=== PATIENT | male | born 1950 | race Caucasian/White ===

== ENCOUNTER 2018-10-30 07:38 | Inpatient (IN) ==
[2018-10-30] MEDS ORDERED: Iohexol 350 MG/ML 50 ML Vial (for Rad Diag) IVCONTRAST ONE (07:39)
[2018-10-30 08:41] LABS: Baso % (Auto) 0.5 % (0.0-2.0); Eos # (Auto) 0.1 th/mm3 (0.0-0.4); Eos % (Auto) 0.8 % (0.0-4.0); Hematocrit 53.7 % (39.0-51.0); Hemoglobin 18.7 gm/dL (13.0-17.0); Lymph # (Auto) 1.2 th/mm3 (1.0-4.8); Lymph % (Auto) 15.7 % (9.0-44.0); Mean Corpuscular HGB Conc 34.9 % (32.0-36.0); Mean Corpuscular Hemoglobin 36.3 pg (27.0-34.0); Mean Corpuscular Volume 104.3 fL (80.0-100.0); Mean Platelet Volume 9.3 fL (7.0-11.0); Mono # (Auto) 0.9 th/mm3 (0.0-0.9); Mono % (Auto) 11.7 % (0.0-8.0); Neut # (Auto) 5.4 th/mm3 (1.8-7.7); Neut % (Auto) 71.3 % (16.0-70.0); Platelet Count 163 th/mm3 (150-450); Red Blood Count 5.15 mil/mm3 (4.50-5.90); Red Cell Distribution Width 13.5 % (11.6-17.2); White Blood Count 7.6 th/mm3 (4.0-11.0)
--- NOTE | 2018-10-30 08:55 | ED ---
HPI General Chief complaint: Shortness of Breath/Dyspnea Stated complaint: CHF/Heart Complaint Time Seen by Provider: 10/30/18 08:10 Source: patient Mode of arrival: ambulatory Limitations: no limitations History of Present Illness HPI narrative: Patient is a 68 year old male who comes in complaining of shortness of breath. He says he went to the [place] yesterday and was told to come to the ED due to concerns for CHF and afib. He says for the past week he has been feeling short of breath, worse with exertion. He says it started suddenly while he was at the gym. He denies any chest pain. He has been coughing. He denies fever or chills. He feels short of breath with laying flat as well. He reports swelling of both legs. Severity is moderate. Related Data Home Medications Medication Instructions Recorded Confirmed alprazolam 1.5 mg PO HS 10/30/18 10/30/18 amlodipine 5 mg PO DAILY 10/30/18 10/30/18 buspirone 20 mg PO BID 10/30/18 10/30/18 lisinopril-hydrochlorothiazide 2 tab PO DAILY 10/30/18 10/30/18 mirtazapine 45 mg PO HS 10/30/18 10/30/18 morphine 15 mg PO BID PRN 10/30/18 10/30/18 oxycodone 5 mg PO DAILY 10/30/18 10/30/18 trazodone 1 - 2 tab PO HS PRN 10/30/18 10/30/18 Allergies Allergy/AdvReac Type Severity Reaction Status Date / Time atenolol Allergy Anxiety Verified 10/30/18 08:00 lithium AdvReac Anxiety Verified 10/30/18 08:00 Review of Systems ROS: all other systems reviewed are negative Constitutional Denies chills and Denies fever(s) ENT Denies dizziness Cardiovascular Denies chest pain, Reports edema and Reports dyspnea Respiratory Reports cough and Reports dyspnea Gastrointestinal Denies nausea and Denies vomiting Musculoskeletal Denies myalgias and Denies arthralgias Integumentary/Breasts Denies sores and Denies wounds Neurologic Denies focal weakness and Denies numbness PMFSH Medical History Medical History A-fib (Acute) BPH without urinary obstruction (Acute) CHF (congestive heart failure) (Acute) Cocaine dependence in remission (Acute) Edema (Acute) Elevated PSA (Acute) Generalized anxiety disorder (Acute) Hypogonadism male (Acute) Major depression in partial remission (Acute) Nondependent alcohol abuse, in remission (Acute) Obesity (Acute) Obstructive sleep apnea (Acute) Osteoarthritis (Acute) Panic attacks (Acute) Polysubstance dependence (Acute) Sensorineural hearing loss (SNHL) of both ears (Acute) Tinnitus (Acute) Surgical History Surgical History History of hernia repair (Acute) History of hip replacement (Acute) History of knee replacement (Acute) Social History Social History Substance History: No History of Abuse Second Hand Smoke Exposure: Yes Smoking Status: Current every day smoker Tobacco Type: Cigars How Often Do You Have a Drink Containing Alcohol: 4 or more times a week Recent Travel in [facility] within the Last 8 Weeks: No Recent Out of Country Travel within the Last 8 Weeks: No Immunization History Tetanus Immunization: <5 Years Tetanus Immunization Year if Known: 2017 Exam Narrative Exam Narrative: GENERAL: Awake and alert, in no acute distress. SKIN: Focused skin assessment warm/dry. No wounds or signs of infection. HEAD: Atraumatic. Normocephalic. EYES: Pupils equal and round. No scleral icterus. No injection or drainage. ENT: Mucous membranes pink and moist. NECK: Trachea midline. No JVD. CARDIOVASCULAR: Regular rate and rhythm. No murmur appreciated. RESPIRATORY: No accessory muscle use. Decreased breath sounds on the left. Breath sounds equal bilaterally. GASTROINTESTINAL: Abdomen soft, non-tender, nondistended. MUSCULOSKELETAL: No obvious deformities. No clubbing. No cyanosis. Bilateral lower extremity edema. NEUROLOGICAL: Awake and alert. No obvious cranial nerve deficits. Motor grossly within normal limits. Normal speech. PSYCHIATRIC: Appropriate mood and affect; insight and judgment normal. Course Initial Documented Vital Signs Temperature 97.9 F 10/30/18 07:42 Pulse Rate 120 H 10/30/18 07:42 Respiratory Rate 20 10/30/18 07:42 Blood Pressure 151/104 H 10/30/18 07:42 Pulse Oximetry 95 10/30/18 07:42 Last Documented Vital Signs Temperature 97.7 F 10/30/18 12:57 Pulse Rate 93 H 10/30/18 12:57 Respiratory Rate 17 10/30/18 12:57 Blood Pressure 113/82 10/30/18 12:57 Pulse Oximetry 96 10/30/18 12:57 Medical Decision Making MDM Narrative Medical decision making narrative: Patient is a 68 year old male who comes in complaining of shortness of breath, edema and rapid heart rate. Exam shows bilateral lower extremity edema and decreased breath sounds on the left. IV established, labs sent. Labs show a Hgb of 18.7, Cr 1.45, BNP slightly elevated. CXR concerning for left sided pleural effusion. CTA chest performed shows pleural effusions, no PE. Given Lasix. Given one dose of cardizem for heart rate in the 110-120 range. Patient to be admitted for further management. Medical Screen Exam Complete: Yes Emergency Medical Condition: Yes Differential Diagnosis Differential Diagnosis: CHF vs COPD vs ACS vs Afib Medical Records Medical records reviewed: Yes I reviewed the patient's medical records. Lab Data Lab results reviewed: Yes I reviewed the patient's lab results. Result diagrams: 10/30/18 08:30 10/30/18 08:30 Lab Results 10/30/18 10/30/18 10/30/18 Range/Units 08:30 08:30 08:30 WBC 7.6 (4.0-11.0) th/mm3 RBC 5.15 (4.50-5.90) mil/mm3 Hgb 18.7 H (13.0-17.0) gm/dL Hct 53.7 H (39.0-51.0) % MCV 104.3 H (80.0-100.0) fL MCH 36.3 H (27.0-34.0) pg MCHC 34.9 (32.0-36.0) % RDW 13.5 (11.6-17.2) % Plt Count 163 (150-450) th/mm3 MPV 9.3 (7.0-11.0) fL Neut % (Auto) 71.3 H (16.0-70.0) % Lymph % (Auto) 15.7 (9.0-44.0) % Davidson % (Auto) 11.7 H (0.0-8.0) % Eos % (Auto) 0.8 (0.0-4.0) % Baso % (Auto) 0.5 (0.0-2.0) % Neut # (Auto) 5.4 (1.8-7.7) th/mm3 Lymph # (Auto) 1.2 (1.0-4.8) th/mm3 Davidson # (Auto) 0.9 (0.0-0.9) th/mm3 Eos # (Auto) 0.1 (0.0-0.4) th/mm3 Baso # (Auto) 0.0 (0.0-0.2) th/mm3 WBC Differential . Differential Comment Auto diff final PT (9.8-11.6) sec INR Ratio APTT (23.4-31.7) sec Sodium 139 (136-145) meq/L Potassium 4.4 (3.5-5.1) meq/L Chloride 103 (98-107) meq/L Carbon Dioxide 29.8 (21.0-32.0) meq/L Anion Gap 6 (5-15) meq/L BUN 25 H (7-18) mg/dL Creatinine 1.45 H (0.60-1.30) mg/dL Estimated GFR 48 L (>89) mL/min Random Glucose 127 H (74-106) mg/dL Calcium 9.1 (8.5-10.1) mg/dL Total Bilirubin 1.4 H (0.2-1.0) mg/dL AST 48 H (15-37) U/L ALT 67 (12-78) U/L Alkaline Phosphatase 67 (45-117) U/L Total Creatine Kinase 133 (39-308) U/L CK-MB (CK-2) 3.3 (0.5-3.6) ng/mL Troponin I 0.03 (0.02-0.05) ng/mL B-Natriuretic Peptide 222 H (0-100) pg/mL Total Protein 7.8 (6.4-8.2) g/dL Albumin 3.8 (3.4-5.0) g/dL 10/30/18 Range/Units 08:30 WBC (4.0-11.0) th/mm3 RBC (4.50-5.90) mil/mm3 Hgb (13.0-17.0) gm/dL Hct (39.0-51.0) % MCV (80.0-100.0) fL MCH (27.0-34.0) pg MCHC (32.0-36.0) % RDW (11.6-17.2) % Plt Count (150-450) th/mm3 MPV (7.0-11.0) fL Neut % (Auto) (16.0-70.0) % Lymph % (Auto) (9.0-44.0) % Davidson % (Auto) (0.0-8.0) % Eos % (Auto) (0.0-4.0) % Baso % (Auto) (0.0-2.0) % Neut # (Auto) (1.8-7.7) th/mm3 Lymph # (Auto) (1.0-4.8) th/mm3 Davidson # (Auto) (0.0-0.9) th/mm3 Eos # (Auto) (0.0-0.4) th/mm3 Baso # (Auto) (0.0-0.2) th/mm3 WBC Differential Differential Comment PT 12.3 H (9.8-11.6) sec INR 1.2 Ratio APTT 30.4 (23.4-31.7) sec Sodium (136-145) meq/L Potassium (3.5-5.1) meq/L Chloride (98-107) meq/L Carbon Dioxide (21.0-32.0) meq/L Anion Gap (5-15) meq/L BUN (7-18) mg/dL Creatinine (0.60-1.30) mg/dL Estimated GFR (>89) mL/min Random Glucose (74-106) mg/dL Calcium (8.5-10.1) mg/dL Total Bilirubin (0.2-1.0) mg/dL AST (15-37) U/L ALT (12-78) U/L Alkaline Phosphatase (45-117) U/L Total Creatine Kinase (39-308) U/L CK-MB (CK-2) (0.5-3.6) ng/mL Troponin I (0.02-0.05) ng/mL B-Natriuretic Peptide (0-100) pg/mL Total Protein (6.4-8.2) g/dL Albumin (3.4-5.0) g/dL Imaging Data Radiologist's impression: Chest X-Ray 10/30/18 08:19 CONCLUSION: Mild congestive failure with minimal consolidation and pleural effusion left base. Chest CTA 10/30/18 08:55 CONCLUSION: 1. No evidence of pulmonary embolism. 2. Moderate cardiomegaly and bilateral pleural effusions left greater than right. 3. Mild consolidation in the posterior left lung base. 4. Mildly prominent azygos lymph node. ECG Data EKG Prior to Arrival: No Attestation: I personally reviewed and interpreted this ECG as follows: Interpretation: ECG shows afib with RVR Discharge Plan Discharge Disposition Patient Disposition: ED Admit(ED Internal Use Only) Discharge Condition Condition: Stable Discharge Order Discharge Orders: ED Use Only Admit Order (Routine); Ordered 10/30/18 Ordered By: Julianne Garcia Discharge Details Diagnosis: CHF (congestive heart failure), New onset a-fib, Pleural effusion Physicians Team ED Provider: Julianne Garcia Primary Care Provider: [facility] Attending Provider: Eleanor Patel Other Providers: Anabela Harris Status ED Status: Admitted Patient
[2018-10-30 08:57] LABS: Activated Partial Thrombo Time 30.4 sec (23.4-31.7); INR 1.2 Ratio; Prothrombin Time 12.3 sec (9.8-11.6)
[2018-10-30 09:05] LABS: Alanine Aminotransferase 67 U/L (12-78); Albumin 3.8 g/dL (3.4-5.0); Alkaline Phosphatase 67 U/L (45-117); Anion Gap 6 meq/L (5-15); Aspartate Aminotransferase 48 U/L (15-37); Blood Urea Nitrogen 25 mg/dL (7-18); Calcium 9.1 mg/dL (8.5-10.1); Carbon Dioxide 29.8 meq/L (21.0-32.0); Chloride 103 meq/L (98-107); Creatine Kinase 133 U/L (39-308); Glomerular Filtration Rate 48 mL/min (>89); Glucose,Random 127 mg/dL (74-106); Sodium 139 meq/L (136-145); Total Protein 7.8 g/dL (6.4-8.2); Troponin I 0.03 ng/mL (0.02-0.05)
[2018-10-30 09:12] LABS: Potassium 4.4 meq/L (3.5-5.1)
[2018-10-30 09:24] LABS: Creatine Kinase MB 3.3 ng/mL (0.5-3.6)
--- NOTE | 2018-10-30 09:34 | XR ---
EXAM DATE: 10/30/2018 9:18 AM EST AGE/SEX: 68 years / Male INDICATIONS: Chest pain and short of breath. CLINICAL DATA: This is the patient's initial encounter. Patient reports that signs and symptoms have been present for 1 day and indicates a pain score of 5/10. MEDICAL/SURGICAL HISTORY: None. None. COMPARISON: No prior exams available for comparison. FINDINGS: The heart is enlarged. Mild interstitial prominence is evident. Minimal consolidative changes in the left base with presumed trace pleural effusion. Degenerative changes about both shoulders. CONCLUSION: Mild congestive failure with minimal consolidation and pleural effusion left base. Electronically signed by: Antoine Trujillo MD Board Certified Radiologist 10/30/2018 9:33 AM EST
--- NOTE | 2018-10-30 09:44 | CT ---
EXAM DATE: 10/30/2018 9:39 AM EST AGE/SEX: 68 years / Male INDICATIONS: Short of breath, bilateral leg swelling. Abnormal chest plain film left effusion and pu lmonary infiltrates CLINICAL DATA: This is the patient's initial encounter. Patient reports that signs and symptoms have been present for 1 day and indicates a pain score of 0/10. MEDICAL/SURGICAL HISTORY: Cardiovascular disease. Congestive heart failure. . hernia repair, hip r eplacement, knee replacement RADIATION DOSE: 10.96 CTDI (mGy) COMPARISON: [facility] [place], CHEST 1V SINGLE AP, 10/30/2018. . TECHNIQUE: Volumetric scanning was performed using a multi-row detector CT scanner during bolus infu margie of 75 ml Omnipaque 350 (iohexol) nonionic water-soluble contrast as a single exam dose. The diane a was post processed with a variety of visualization algorithms including full volume maximum intensi ty projection and sliding thin slab reformation. Using automated exposure control and adjustment of t he mA and/or kV according to patient size, radiation dose was kept as low as reasonably achievable to obtain optimal diagnostic quality images. DICOM format image data is available electronically for r eview and comparison. FINDINGS: Pulmonary Arteries: No filling defects are seen in the pulmonary arteries out to the subsegmental ve ssels. The left and right pulmonary arteries are normal in diameter. Lung: There is mild consolidation in the left posterior lung base. There is a calcified granuloma ri ght lower lobe. Effusion: There is a small to moderate left effusion and small right pleural effusion. Mediastinum: No evidence of mediastinal or hilar adenopathy. The heart size is moderately enlarged. There are coronary artery calcifications. There is no pericardial effusion. There are small reactive appearing lymph nodes in the mediastinum. Other: The axilla is unremarkable. There is a mildly prominent azygos lymph node measuring up to 1.4 cm on axial image #112. CONCLUSION: 1. No evidence of pulmonary embolism. 2. Moderate cardiomegaly and bilateral pleural effusions left greater than right. 3. Mild consolidation in the posterior left lung base. 4. Mildly prominent azygos lymph node. Electronically signed by: Bradley Perez MD Board Certified Radiologist 10/30/2018 9:43 AM EST
[2018-10-30] MEDS ORDERED: traZODone 50 MG Tablet PO PRN (11:15)
[2018-10-30] MEDS ORDERED: Acetaminophen 325 MG Tablet PO PRN (11:17)
[2018-10-30] MEDS ORDERED: Bisacodyl 10 MG Supp RECTAL PRN (11:17)
[2018-10-30] MEDS: dilTIAZem 30 MG Tablet PO SCH ×3 (12:57→20:37)
[2018-10-30] MEDS ORDERED: Enoxaparin Inj 40 MG/0.4 ML Syringe SQ SCH (13:00)
--- NOTE | 2018-10-30 15:40 | P.HPIM ---
History of Present Illness Primary Care Physician: [facility] Chief Complaint: sob History of Present Illness: Patient is a 68 year old male with PMH of chronic pain, HTN, anxiety of who comes in complaining of shortness of breath. He says he [facility] and was told to come to the ED due to concerns for CHF and afib. He says for the past week he has been feeling short of breath, worse with exertion. He says it started suddenly while he was at the gym. He denies any chest pain. He has been coughing. He denies fever or chills. He feels short of breath with laying flat as well. He reports swelling of both legs worsening. Severity is moderate. Says he is active and goes to the gym 5 times a week. Inpatient Certification Inpatient Certification: I certify that the inpatient services were ordered in accordance with Medicare regulations governing the order. This includes certification that hospital inpatient services are reasonable and necessary and in the case of services not specified as inpatient-only under 42 CFR 419.22(n), that they are appropriately provided as inpatient services in accordance to with the 2-midnight benchmark under 43 CFR 412.3(e) Estimated Total Length of Stay (Days): 3 Plans for Post Hospital Care: Home Review of Systems Review of Systems: all other systems reviewed are negative [facility] Medical History Medical History A-fib (Acute) BPH without urinary obstruction (Acute) CHF (congestive heart failure) (Acute) Cocaine dependence in remission (Acute) Edema (Acute) Elevated PSA (Acute) Generalized anxiety disorder (Acute) Hypogonadism male (Acute) Major depression in partial remission (Acute) Nondependent alcohol abuse, in remission (Acute) Obesity (Acute) Obstructive sleep apnea (Acute) Osteoarthritis (Acute) Panic attacks (Acute) Polysubstance dependence (Acute) Sensorineural hearing loss (SNHL) of both ears (Acute) Tinnitus (Acute) Surgical History Surgical History History of hernia repair (Acute) History of hip replacement (Acute) History of knee replacement (Acute) Family History Family History Other HTN (hypertension) Social History Social History Substance History: Past History Second Hand Smoke Exposure: Yes Smoking Status: Current every day smoker Tobacco Type: Cigars How Often Do You Have a Drink Containing Alcohol: 4 or more times a week Recent Travel in [facility] within the Last 8 Weeks: No Recent Out of Country Travel within the Last 8 Weeks: No Immunization History Tetanus Immunization: <5 Years Tetanus Immunization Year if Known: 2016 Medications and Allergies Allergies Allergy/AdvReac Type Severity Reaction Status Date / Time atenolol Allergy Anxiety Verified 10/30/18 08:00 lithium AdvReac Anxiety Verified 10/30/18 08:00 Home Medications Medication Instructions Recorded Confirmed Type alprazolam 1.5 mg PO HS 10/30/18 10/30/18 History amlodipine 5 mg PO DAILY 10/30/18 10/30/18 History buspirone 20 mg PO BID 10/30/18 10/30/18 History lisinopril-hydrochlorothiazide 2 tab PO DAILY 10/30/18 10/30/18 History mirtazapine 45 mg PO HS 10/30/18 10/30/18 History morphine 15 mg PO BID PRN 10/30/18 10/30/18 History oxycodone 5 mg PO DAILY 10/30/18 10/30/18 History trazodone 1 - 2 tab PO HS PRN 10/30/18 10/30/18 History Active Medications: Active Medications Acetaminophen (Tylenol) 650 mg PO Q4H PRN PRN Reason: Temp > 100.4 Al Hydroxide/Mg Hydroxide (Milk Of Magnesia Liq) 30 ml PO Q12H PRN PRN Reason: Mild Constipation Alprazolam (Xanax) 1.5 mg PO HS [facility] Amlodipine Besylate (Norvasc) 5 mg PO DAILY [facility] Bisacodyl (Dulcolax Supp) 10 mg RECTAL DAILY PRN PRN Reason: SEVERE CONSITIPATION Buspirone HCl (Buspar) 20 mg PO BID [facility] Diltiazem HCl (Cardizem) 30 mg PO QID [facility] Last Admin: 10/30/18 12:57 Dose: 30 mg Enoxaparin Sodium (Lovenox Inj) 40 mg SQ Q24H [facility] Last Admin: 10/30/18 12:57 Dose: 40 mg Furosemide (Lasix Inj) 40 mg IV.PUSH BID@0900,1800 [facility] Hydrochlorothiazide (Hydrodiuril) 25 mg PO DAILY [facility] Lactulose (Lactulose Liq) 30 ml PO DAILY PRN PRN Reason: SEVERE CONSITIPATION Lisinopril (Prinivil) 40 mg PO DAILY [facility] Mirtazapine (Remeron) 45 mg PO HS [facility] Ondansetron HCl (Zofran Inj) 4 mg IV.PUSH Q6H PRN PRN Reason: NAUSEA OR VOMITING Senna/Docusate Sodium (Sanjuana-Colace) 1 tab PO BID [facility] Sennosides (Senokot) 17.2 mg PO Q12H PRN PRN Reason: Moderate Constipation Sodium Chloride (Ns Flush) 2 ml IV.FLUSH BID [facility] Sodium Chloride (Ns Flush) 2 ml IV.FLUSH PRN PRN PRN Reason: FLUSH AFTER USING IV ACCESS Trazodone HCl (Desyrel) 50 mg PO HS PRN PRN Reason: Sleep Physical Exam Vital signs: Vital Signs 10/30/18 07:42 10/30/18 08:19 10/30/18 09:02 Temperature 97.9 F 98 F Pulse Rate 120 H 102 H 113 H Respiratory Rate 20 20 Blood Pressure 151/104 H 138/81 Pulse Oximetry 95 96 96 10/30/18 09:05 10/30/18 10:03 10/30/18 11:17 Temperature 97.8 F Pulse Rate 86 91 H 89 Respiratory Rate 20 20 Blood Pressure 103/71 Pulse Oximetry 96 96 96 10/30/18 11:25 10/30/18 12:57 Temperature 97.7 F Pulse Rate 89 93 H Respiratory Rate 20 17 Blood Pressure 113/85 113/82 Pulse Oximetry 96 96 Intake & Output 10/29/18 10/30/18 10/30/18 18:59 06:59 18:59 Output Total 1400 / 1400 Balance -1400 / -1400 Weight 86.183 kg Output: Urine 1400 / 1400 Other: # Voids 1 Narrative: GENERAL: 68 yo male,well nourished well developed appears with sob SKIN: Warm and dry. HEAD: Atraumatic. Normocephalic. EYES: Pupils equal and round. No scleral icterus. No injection or drainage. ENT: No nasal bleeding or discharge. Mucous membranes pink and moist. NECK: Trachea midline. No JVD. CARDIOVASCULAR: Irregular rate and rhythm. RESPIRATORY: No accessory muscle use. Decreased breath sounds and crackles bilaterally GASTROINTESTINAL: Abdomen soft, obese, non-tender, nondistended. MUSCULOSKELETAL: Extremities without clubbing, cyanosis. +3 bilateral LE edema. No obvious deformities. NEUROLOGICAL: Awake and alert. No obvious cranial nerve deficits. Motor grossly within normal limits. Five out of 5 muscle strength in the arms and legs. Normal speech. PSYCHIATRIC: Appropriate mood and affect; insight and judgment normal. Results Labs CBC & Chem 7: 10/30/18 08:30 10/30/18 08:30 Imaging Impressions Chest X-Ray 10/30/18 08:19 CONCLUSION: Mild congestive failure with minimal consolidation and pleural effusion left base. Chest CTA 10/30/18 08:55 CONCLUSION: 1. No evidence of pulmonary embolism. 2. Moderate cardiomegaly and bilateral pleural effusions left greater than right. 3. Mild consolidation in the posterior left lung base. 4. Mildly prominent azygos lymph node. Caprini VTE Risk Assessment Caprini VTE Risk Assessment: Moderate/High Risk (score >= 2) Caprini Risk Assessment Model: Point Value = 1 Point Value = 2 Point Value = 3 Point Value = 5 Age 41-60 Minor surgery BMI > 25 kg/m2 Swollen legs Varicose veins or History of unexplained or recurrent spontaneous Oral contraceptives or hormone replacement Sepsis (< 1 month) Serious lung disease, including pneumonia (< 1 month) Abnormal pulmonary function Acute myocardial infarction Congestive heart failure (< 1 month) History of inflammatory bowel disease Medical patient at bed rest Age 61-74 Arthroscopic surgery Major open surgery (> 45 min) Laparoscopic surgery (> 45 min) Malignancy Confined to bed (> 72 hours) Immobilizing plaster cast Central venous access Age >= 75 History of VTE Family history of VTE Factor V Leiden Prothrombin [id number] Lupus anticoagulant Anticardiolipin antibodies Elevated serum homocysteine Heparin-induced thrombocytopenia Other congenital or acquired thrombophilia Stroke (< 1 month) Elective arthroplasty Hip, pelvis, or leg fracture Acute spinal cord injury (< 1 month) Prophylaxis Regimen: Total Risk Factor Score Risk Level Prophylaxis Regimen 0-1 Low Early ambulation 2 Moderate Order ONE of the following: *Sequential Compression Device (SCD) *Heparin 5000 units SQ BID 3-4 Higher Order ONE of the following medications: *Heparin 5000 units SQ TID *Enoxaparin/Lovenox 40 mg SQ daily (WT < 150 kg, CrCl > 30 mL/min) *Enoxaparin/Lovenox 30 mg SQ daily (WT < 150 kg, CrCl > 10-29 mL/min) *Enoxaparin/Lovenox 30 mg SQ BID (WT < 150 kg, CrCl > 30 mL/min) AND/OR *Sequential Compression Device (SCD) 5 or more Highest Order ONE of the following medications: *Heparin 5000 units SQ TID (Preferred with Epidurals) *Enoxaparin/Lovenox 40 mg SQ daily (WT < 150 kg, CrCl > 30 mL/min) *Enoxaparin/Lovenox 30 mg SQ daily (WT < 150 kg, CrCl > 10-29 mL/min) *Enoxaparin/Lovenox 30 mg SQ BID (WT < 150 kg, CrCl > 30 mL/min) AND *Sequential Compression Device (SCD) Assessment and Plan Plan 68-year-old male with complaints of shortness of breath New onset A. fib with RVR New onset CHF, elevated BNP on admission Hypertension Chronic pain Anxiety/depression The patient denies having chest pain. Troponin negative, EKG no acute ischemic changes Received diltiazem IV in the emergency room and heart rate is better controlled , start diltiazem 30 mg p.o. 4 times daily, changed to long-acting Start IV Lasix 40 mg twice daily monitor urine output, monitor kidney function closely Ordered echo Check TSH Consult cardiology Restart home medications as appropriate DVT prophylaxis SCDs/teds/Lovenox Discussed with the patient. nurse, ED physician
[2018-10-30] MEDS ORDERED: Magnesium Oxide 400 MG Tablet PO ONE (16:00)
[2018-10-30] MEDS ORDERED: Morphine Sulfate 15 MG IR Tablet PO PRN (16:20)
--- NOTE | 2018-10-30 16:46 | P.CONCA ---
History of Present Illness Service: Cardiology Consult date: 10/30/18 Requesting Physician: Eleanor Patel Reason for Consult: New onset atrial fibrillation Primary Care Provider: [facility] Chief Complaint: sob History of Present Illness: This is a 68-year-old male with a past medical history of CHF, generalized anxiety disorder, major depression, obstructive sleep apnea, polysubstance dependence and BPH. He states that he developed shortness of breath and a cough while working out at a gym approximately 1 week ago. [facility], so he waited for that appt to be evaluated. During evaluation, he was discovered to be in atrial fibrillation with RVR and was sent to the Emergency Department for further evaluation. He denies any previous history of atrial fibrillation but believes that it started about 6 months ago. He stated that he significant other was attempting to take his pulse and she stated, "your pulse is all over the place." He denies any CP, pressure, dizziness or edema. He does complain of mild SOB with activity and occasional palpitations. Review of Systems All other systems reviewed negative except as stated in HPI PMFSH - History History Provided By: Patient - Medical History Medical History: Medical History (Last Reviewed 10/30/18 @ 16:31 by Eleanor Patel MD) A-fib BPH without urinary obstruction CHF (congestive heart failure) Cocaine dependence in remission Edema Elevated PSA Generalized anxiety disorder Hypogonadism male Major depression in partial remission Nondependent alcohol abuse, in remission Obesity Obstructive sleep apnea Osteoarthritis Panic attacks Polysubstance dependence Sensorineural hearing loss (SNHL) of both ears Tinnitus - Surgical History Surgical History: Surgical History (Last Reviewed 10/30/18 @ 16:31 by Eleanor Patel MD) History of hernia repair History of hip replacement History of knee replacement - Family History Family History: Family History (Last Reviewed 10/30/18 @ 16:31 by Eleanor Patel MD) Other HTN (hypertension) - Tobacco History Second Hand Smoke Exposure: Yes Tobacco Use In Past 30 Days: Yes Smoking Status: Current every day smoker Tobacco Type: Cigars - Alcohol History How Often Do You Have a Drink Containing Alcohol: 4 or more times a week - Substance Use History Substance History: Past History - Travel History Recent Travel in the [place] Within the Last 8 Weeks: No Recent Travel Out of the Country Within the Last 8 Weeks: No - Immunization History Tetanus Immunization: <5 Years Tetanus Immunization Year if Known: 2016 Hx Influenza Vaccine This Season: No Medications and Allergies Allergies Allergy/AdvReac Type Severity Reaction Status Date / Time atenolol Allergy Anxiety Verified 10/30/18 08:00 lithium AdvReac Anxiety Verified 10/30/18 08:00 Home Medications Medication Instructions Recorded Confirmed Type alprazolam 1.5 mg PO HS 10/30/18 10/30/18 History amlodipine 5 mg PO DAILY 10/30/18 10/30/18 History buspirone 20 mg PO BID 10/30/18 10/30/18 History lisinopril-hydrochlorothiazide 2 tab PO DAILY 10/30/18 10/30/18 History mirtazapine 45 mg PO HS 10/30/18 10/30/18 History morphine 15 mg PO BID PRN 10/30/18 10/30/18 History oxycodone 5 mg PO DAILY 10/30/18 10/30/18 History trazodone 1 - 2 tab PO HS PRN 10/30/18 10/30/18 History Active Medications: Active Medications Acetaminophen (Tylenol) 650 mg PO Q4H PRN PRN Reason: Temp > 100.4 Al Hydroxide/Mg Hydroxide (Milk Of Magnesia Liq) 30 ml PO Q12H PRN PRN Reason: Mild Constipation Alprazolam (Xanax) 1.5 mg PO HS [facility] Amlodipine Besylate (Norvasc) 5 mg PO DAILY [facility] Bisacodyl (Dulcolax Supp) 10 mg RECTAL DAILY PRN PRN Reason: SEVERE CONSITIPATION Buspirone HCl (Buspar) 20 mg PO BID [facility] Dabigatran (Pradaxa) 150 mg PO BID [facility] Diltiazem HCl (Cardizem) 30 mg PO QID [facility] Last Admin: 10/30/18 12:57 Dose: 30 mg Furosemide (Lasix Inj) 40 mg IV.PUSH BID@0900,1800 [facility] Hydrochlorothiazide (Hydrodiuril) 25 mg PO DAILY [facility] Lactulose (Lactulose Liq) 30 ml PO DAILY PRN PRN Reason: SEVERE CONSITIPATION Lisinopril (Prinivil) 40 mg PO DAILY [facility] Mirtazapine (Remeron) 45 mg PO HS [facility] Morphine Sulfate (Msir) 15 mg PO BID PRN PRN Reason: Pain Ondansetron HCl (Zofran Inj) 4 mg IV.PUSH Q6H PRN PRN Reason: NAUSEA OR VOMITING Oxycodone HCl (Roxicodone) 5 mg PO DAILY [facility] Senna/Docusate Sodium (Sanjuana-Colace) 1 tab PO BID [facility] Sennosides (Senokot) 17.2 mg PO Q12H PRN PRN Reason: Moderate Constipation Sodium Chloride (Ns Flush) 2 ml IV.FLUSH BID [facility] Sodium Chloride (Ns Flush) 2 ml IV.FLUSH PRN PRN PRN Reason: FLUSH AFTER USING IV ACCESS Trazodone HCl (Desyrel) 50 mg PO HS PRN PRN Reason: Sleep Exam Vital signs: Vital Signs 10/30/18 07:42 10/30/18 08:19 10/30/18 09:02 Temperature 97.9 F 98 F Pulse Rate 120 H 102 H 113 H Respiratory Rate 20 20 Blood Pressure 151/104 H 138/81 Pulse Oximetry 95 96 96 10/30/18 09:05 10/30/18 10:03 10/30/18 11:17 Temperature 97.8 F Pulse Rate 86 91 H 89 Respiratory Rate 20 20 Blood Pressure 103/71 Pulse Oximetry 96 96 96 10/30/18 11:25 10/30/18 12:57 Temperature 97.7 F Pulse Rate 89 93 H Respiratory Rate 20 17 Blood Pressure 113/85 113/82 Pulse Oximetry 96 96 Intake & Output 10/29/18 10/30/18 10/30/18 18:59 06:59 18:59 Output Total 1400 / 1400 Balance -1400 / -1400 Weight 86.183 kg Output: Urine 1400 / 1400 Other: # Voids 1 - Constitutional no acute distress - Routine HEENT Exam Head: Present: normocephalic Eye: Present: PERRL ENT: Present: mucous membranes moist - Routine Neck Exam Present: full ROM - Routine Respiratory Exam Present: CTA bilaterally - Routine Cardiovascular Exam Present: S1, S2, irregular rhythm - Routine Abdominal Exam Present: normoactive bowel sounds - Routine Extremities Exam Present: full ROM, pulses intact, normal capillary refill. Absent: cyanosis, clubbing, edema - Routine Skin Exam Present: intact - Routine Neurological Exam Present: oriented X3 Results 10/30/18 08:30 10/30/18 08:30 Cardiac Enzymes 10/30/18 10/30/18 Range/Units 08:30 08:30 AST 48 H (15-37) U/L CK-MB (CK-2) 3.3 (0.5-3.6) ng/mL Troponin I 0.03 (0.02-0.05) ng/mL B-Natriuretic Peptide 222 H (0-100) pg/mL Coagulation 10/30/18 10/30/18 Range/Units 08:30 08:30 PT 12.3 H (9.8-11.6) sec APTT 30.4 (23.4-31.7) sec B-Natriuretic Peptide 222 H (0-100) pg/mL CBC 10/30/18 Range/Units 08:30 WBC 7.6 (4.0-11.0) th/mm3 RBC 5.15 (4.50-5.90) mil/mm3 Hgb 18.7 H (13.0-17.0) gm/dL Hct 53.7 H (39.0-51.0) % Plt Count 163 (150-450) th/mm3 Neut # (Auto) 5.4 (1.8-7.7) th/mm3 Lymph # (Auto) 1.2 (1.0-4.8) th/mm3 [place] # (Auto) 0.9 (0.0-0.9) th/mm3 Eos # (Auto) 0.1 (0.0-0.4) th/mm3 Baso # (Auto) 0.0 (0.0-0.2) th/mm3 Comprehensive Metabolic Panel 10/30/18 Range/Units 08:30 Sodium 139 (136-145) meq/L Potassium 4.4 (3.5-5.1) meq/L Chloride 103 (98-107) meq/L Carbon Dioxide 29.8 (21.0-32.0) meq/L BUN 25 H (7-18) mg/dL Creatinine 1.45 H (0.60-1.30) mg/dL Calcium 9.1 (8.5-10.1) mg/dL AST 48 H (15-37) U/L ALT 67 (12-78) U/L Alkaline Phosphatase 67 (45-117) U/L Total Protein 7.8 (6.4-8.2) g/dL Albumin 3.8 (3.4-5.0) g/dL Intake and Output 10/30/18 10/30/18 10/30/18 06:59 14:59 22:59 Output Total 1400 / 1400 Balance -1400 / -1400 Output: Urine 1400 / 1400 Other: # Voids 1 Weight 86.183 kg Patient Weight 10/31/18 06:59 Weight 86.183 kg - Imaging and Cardiology Imaging: Impressions Chest X-Ray 10/30/18 08:19 CONCLUSION: Mild congestive failure with minimal consolidation and pleural effusion left base. Chest CTA 10/30/18 08:55 CONCLUSION: 1. No evidence of pulmonary embolism. 2. Moderate cardiomegaly and bilateral pleural effusions left greater than right. 3. Mild consolidation in the posterior left lung base. 4. Mildly prominent azygos lymph node. Assessment and Plan - Assessment (1) New onset a-fib Code(s): I48.91 - Unspecified atrial fibrillation Status: Acute (2) CHF (congestive heart failure) Code(s): I50.9 - Heart failure, unspecified Status: Acute (3) Pleural effusion Code(s): J90 - Pleural effusion, not elsewhere classified Status: Acute (4) Cardiomyopathy Code(s): I42.9 - Cardiomyopathy, unspecified Status: Acute - Plan Echo with moderate to severe LV systolic dysfunction. Schedule nuclear stress test to evaluate for ischemia. Continue treatment for CHF, add beta anni. We will start Pradaxa 150 mg BID for anticoagulation. First dose to be given at 2200 tonight; discontinue Lovenox. Continue to monitor the patient on telemetry. We will continue to monitor the patient during his hospitalization. The patient was seen and evaluated by Dr. Harris who participated in care, management and decision making. - Attending Attestation Patient seen and examined. I reviewed and agree with the evaluation and plan as presented. Echo with LV dysfunction. Will schedule nuc ST. Start beta anni. Start anticoagulation with Pradaxa. DC cardioversion after 3 weeks of anticoagulation. F/u at the [facility]. (2) CHF (congestive heart failure) Qualifiers: Heart failure type: unspecified Heart failure chronicity: acute Qualified Code(s): I50.9 - Heart failure, unspecified
[2018-10-30 16:57] LABS: Magnesium 1.9 mg/dL (1.5-2.5)
[2018-10-30 16:59] LABS: Thyroid Stimulating Hormone 2.53 uIU/mL (0.358-3.740)
--- NOTE | 2018-10-30 18:03 | ECHRPT ---
Indication: afib and flutter CONCLUSIONS Normal left ventricular size. Wall thickness is normal. The left ventricular systolic function is moderately to severely reduced with an estimated ejection fraction in the range of 30-35%. The right ventricle is mildly dilated. The left atrial size is vnva-hq-rhszybndxa dilated. Mild thickening of the mitral valve leaflets. Moderate mitral valve regurgitation. Mild thickening of the aortic valve leaflets. Vrjj-gm-fykpgfyu aortic valve regurgitation. The estimated pulmonary arterial pressure is 37 mmHg. There is mild tricuspid valve regurgitation. BP: / HR: Rhythm: MEASUREMENTS (Male / Female) Normal Values Technical Quality: 2D ECHO LV Diastolic Diameter PLAX 4.9 cm 4.2 - 5.9 / 3.9 - 5.3 cm LV Systolic Diameter PLAX 4.3 cm IVS Diastolic Thickness 1.2 cm 0.6 - 1.0 / 0.6 - 0.9 cm LVPW Diastolic Thickness 1.2 cm 0.6 - 1.0 / 0.6 - 0.9 cm LV Relative Wall Thickness 0.5 RV Internal Dim ED PLAX 4.1 cm LVOT Diameter 2.4 cm Aortic Root Diameter 4.0 cm LA Systolic Diameter LX 3.4 cm 3.0 - 4.0 / 2.7 - 3.8 cm M-MODE Aortic Root Diameter MM 4.0 cm LA Systolic Diameter MM 5.0 cm LA Ao Ratio MM 1.3 AV Cusp Separation MM 2.4 cm DOPPLER AV Peak Velocity 105.0 cm/s AV Peak Gradient 4.4 mmHg AI Peak Velocity 319.0 cm/s AI Peak Gradient 40.7 mmHg AI Pressure Half Time 326.0 ms LVOT Peak Velocity 80.9 cm/s LVOT Peak Gradient 2.6 mmHg AV Area Cont Eq pk 3.5 cm Mitral E Point Velocity 82.4 cm/s LV E' Lateral Velocity 4.4 cm/s Mitral E to LV E' Lateral Ratio 18.6 LV E' Septal Velocity 4.5 cm/s Mitral E to LV E' Septal Ratio 18.2 TR Peak Velocity 261.0 cm/s TR Peak Gradient 27.2 mmHg Right Atrial Pressure 10.0 mmHg Pulmonary Artery Systolic Pressu 37.2 mmHg Right Ventricular Systolic Press 37.2 mmHg PV Peak Velocity 70.6 cm/s PV Peak Gradient 2.0 mmHg FINDINGS LEFT VENTRICLE Normal left ventricular size. Wall thickness is normal. The left ventricular systolic function is moderately to severely reduced with an estimated ejection fraction in the range of 30-35%. RIGHT VENTRICLE The right ventricle is mildly dilated. LEFT ATRIUM The left atrial size is linm-pr-qmcsiewhvn dilated. MITRAL VALVE Mild thickening of the mitral valve leaflets. Moderate mitral valve regurgitation. AORTIC VALVE Mild thickening of the aortic valve leaflets. Yzad-wk-jxsstdnx aortic valve regurgitation. TRICUSPID VALVE The estimated pulmonary arterial pressure is 37 mmHg. There is mild tricuspid valve regurgitation. Anabela Harris MD, FACC (Electronically Signed) Final Date:30 October 2018 18:02
--- NOTE | 2018-10-30 19:59 | ECG ---
Date Performed: 10/30/2018 Time Performed: 08:24:36 PTAGE: 68 years EKG: ATRIAL FIBRILLATION WITH RAPID VENTRICULAR RESPONSE INDETERMINATE AXIS ST DEVIATION AND MOD ERATE T-WAVE ABNORMALITY, CONSIDER LATERAL ISCHEMIA ABNORMAL ECG NO PREVIOUS TRACING DOCTOR: Maximus Li Interpretating Date/Time 10/30/2018 19:58:06
[2018-10-30] MEDS: ALPRAZolam 0.5 MG Tablet PO SCH (20:36)
[2018-10-30] MEDS: Mirtazapine 15 MG Tablet PO SCH (20:37)
[2018-10-30] MEDS: Senna/Docusate Sodium 8.6/50 MG Tablet PO SCH (20:38)
[2018-10-30] MEDS: Metoprolol Tartrate 25 MG Tablet PO SCH (23:30)
[2018-10-31 06:55] LABS: Baso % (Auto) 0.3 % (0.0-2.0); Eos # (Auto) 0.1 th/mm3 (0.0-0.4); Eos % (Auto) 1.4 % (0.0-4.0); Hematocrit 54.5 % (39.0-51.0); Hemoglobin 19.1 gm/dL (13.0-17.0); Lymph # (Auto) 1.1 th/mm3 (1.0-4.8); Lymph % (Auto) 15.4 % (9.0-44.0); Mean Corpuscular Hemoglobin 35.9 pg (27.0-34.0); Mean Corpuscular Volume 102.6 fL (80.0-100.0); Mean Platelet Volume 9.8 fL (7.0-11.0); Mono % (Auto) 13.9 % (0.0-8.0); Neut # (Auto) 4.9 th/mm3 (1.8-7.7); Platelet Count 149 th/mm3 (150-450); Red Blood Count 5.31 mil/mm3 (4.50-5.90); Red Cell Distribution Width 13.2 % (11.6-17.2); White Blood Count 7.1 th/mm3 (4.0-11.0)
[2018-10-31 07:06] LABS: Alanine Aminotransferase 54 U/L (12-78); Albumin 3.3 g/dL (3.4-5.0); Anion Gap 7 meq/L (5-15); Aspartate Aminotransferase 26 U/L (15-37); Blood Urea Nitrogen 29 mg/dL (7-18); Calcium 8.6 mg/dL (8.5-10.1); Carbon Dioxide 32.6 meq/L (21.0-32.0); Chloride 100 meq/L (98-107); Glomerular Filtration Rate 44 mL/min (>89); Glucose,Random 92 mg/dL (74-106); Magnesium 1.9 mg/dL (1.5-2.5); Potassium 3.7 meq/L (3.5-5.1); Sodium 140 meq/L (136-145)
[2018-10-31 07:08] LABS: Alkaline Phosphatase 55 U/L (45-117); Total Protein 6.8 g/dL (6.4-8.2)
[2018-10-31] MEDS: Lisinopril 20 MG Tablet PO SCH (08:36)
[2018-10-31] MEDS: hydroCHLOROthiazide 25 MG Tablet PO SCH (08:36)
[2018-10-31] MEDS: Metoprolol Tartrate 25 MG Tablet PO SCH ×3 (08:37→21:44)
[2018-10-31] MEDS: Senna/Docusate Sodium 8.6/50 MG Tablet PO SCH ×2 (08:37→21:29)
[2018-10-31] MEDS ORDERED: amLODIPine 5 MG Tablet PO SCH (09:00)
[2018-10-31] MEDS ORDERED: LISINOPRIL HYDROCHLOROTHIAZIDE PO SCH (09:00)
--- NOTE | 2018-10-31 11:17 | P.PNCA ---
Subjective Interval history: Patient denies any CP, pressure, palpitations, dizziness, edema or SOB. He did state that he had some indigestion last night. Medications and Allergies Allergies Allergy/AdvReac Type Severity Reaction Status Date / Time atenolol Allergy Anxiety Verified 10/30/18 08:00 lithium AdvReac Anxiety Verified 10/30/18 08:00 Home Medications Medication Instructions Recorded Confirmed Type alprazolam 1.5 mg PO HS 10/30/18 10/30/18 History amlodipine 5 mg PO DAILY 10/30/18 10/30/18 History buspirone 20 mg PO BID 10/30/18 10/30/18 History lisinopril-hydrochlorothiazide 2 tab PO DAILY 10/30/18 10/30/18 History mirtazapine 45 mg PO HS 10/30/18 10/30/18 History morphine 15 mg PO BID PRN 10/30/18 10/30/18 History oxycodone 5 mg PO DAILY 10/30/18 10/30/18 History trazodone 1 - 2 tab PO HS PRN 10/30/18 10/30/18 History Active Medications: Active Medications Acetaminophen (Tylenol) 650 mg PO Q4H PRN PRN Reason: Temp > 100.4 Al Hydroxide/Mg Hydroxide (Milk Of Magnesia Liq) 30 ml PO Q12H PRN PRN Reason: Mild Constipation Alprazolam (Xanax) 1.5 mg PO HS [facility] Last Admin: 10/30/18 20:36 Dose: 1.5 mg Bisacodyl (Dulcolax Supp) 10 mg RECTAL DAILY PRN PRN Reason: SEVERE CONSITIPATION Buspirone HCl (Buspar) 20 mg PO BID [facility] Last Admin: 10/31/18 08:38 Dose: 20 mg Dabigatran (Pradaxa) 150 mg PO BID [facility] Last Admin: 10/31/18 08:36 Dose: 150 mg Furosemide (Lasix Inj) 40 mg IV.PUSH BID@0900,1800 [facility] Last Admin: 10/31/18 08:38 Dose: 40 mg Hydrochlorothiazide (Hydrodiuril) 25 mg PO DAILY [facility] Last Admin: 10/31/18 08:36 Dose: 25 mg Lactulose (Lactulose Liq) 30 ml PO DAILY PRN PRN Reason: SEVERE CONSITIPATION Lisinopril (Prinivil) 40 mg PO DAILY [facility] Last Admin: 10/31/18 08:36 Dose: 40 mg Metoprolol Tartrate (Lopressor) 25 mg PO BID [facility] Last Admin: 10/31/18 08:37 Dose: 25 mg Mirtazapine (Remeron) 45 mg PO HS [facility] Last Admin: 10/30/18 20:37 Dose: 45 mg Morphine Sulfate (Msir) 15 mg PO BID PRN PRN Reason: Pain 1-10 Last Admin: 10/30/18 20:38 Dose: 15 mg Ondansetron HCl (Zofran Inj) 4 mg IV.PUSH Q6H PRN PRN Reason: NAUSEA OR VOMITING Oxycodone HCl (Roxicodone) 5 mg PO DAILY [facility] Last Admin: 10/31/18 08:37 Dose: 5 mg Senna/Docusate Sodium (Sanjuana-Colace) 1 tab PO BID [facility] Last Admin: 10/31/18 08:37 Dose: 1 tab Sennosides (Senokot) 17.2 mg PO Q12H PRN PRN Reason: Moderate Constipation Sodium Chloride (Ns Flush) 2 ml IV.FLUSH BID [facility] Last Admin: 10/31/18 08:39 Dose: 2 ml Sodium Chloride (Ns Flush) 2 ml IV.FLUSH PRN PRN PRN Reason: FLUSH AFTER USING IV ACCESS Trazodone HCl (Desyrel) 50 mg PO HS PRN PRN Reason: Sleep Last Admin: 10/30/18 20:41 Dose: 50 mg Physical Exam Vital signs: Vital Signs 10/30/18 11:17 10/30/18 11:25 10/30/18 12:57 Temperature 97.7 F Pulse Rate 89 89 93 H Respiratory Rate 20 17 Blood Pressure 113/85 113/82 Pulse Oximetry 96 96 96 10/30/18 15:05 10/30/18 20:00 10/30/18 20:30 Temperature 98.3 F 97 F L Pulse Rate 103 H 89 88 Respiratory Rate 16 18 Blood Pressure 147/100 H 127/69 Pulse Oximetry 97 94 L 10/30/18 22:50 10/30/18 23:24 10/30/18 23:29 Temperature 98.7 F Pulse Rate 90 Respiratory Rate Blood Pressure 103/76 Pulse Oximetry 96 95 10/31/18 05:05 10/31/18 08:00 10/31/18 08:02 Temperature 97.3 F L 98.1 F Pulse Rate 85 88 97 H Respiratory Rate 18 17 Blood Pressure 125/84 113/75 Pulse Oximetry 96 96 Intake & Output 10/30/18 10/31/18 10/31/18 18:59 06:59 18:59 Intake Total 240 / 240 720 / 720 Output Total 1550 / 1550 1250 / 1250 Balance -1310 / -1310 -530 / -530 Weight 195 kg 87.4 kg Intake: Oral 240 / 240 720 / 720 Output: Urine 1550 / 1550 1250 / 1250 Other: # Voids 1 Date of Last Bowel Movement 10/30/18 # Bowel Movements 0 0 Weight On Admission 86.1 kg - Constitutional no acute distress - Routine HEENT Exam Head: Present: normocephalic Eye: Present: PERRL ENT: Present: mucous membranes moist - Routine Neck Exam Present: full ROM - Routine Respiratory Exam Present: CTA bilaterally - Routine Cardiovascular Exam Present: S1, S2, irregular rhythm - Routine Abdominal Exam Present: normoactive bowel sounds - Routine Extremities Exam Present: full ROM, pulses intact, normal capillary refill. Absent: cyanosis, clubbing, edema - Routine Skin Exam Present: intact - Routine Neurological Exam Present: oriented X3 - Detailed Neurological Exam: Coma Scale Eye Opening: Spontaneous Verbal Response: Oriented Motor Response: Obey commands Winters Coma Scale Total: 15 - Routine Psychiatric Exam Present: normal affect Results 10/31/18 05:59 10/31/18 05:59 Cardiac Enzymes 10/30/18 10/30/18 10/31/18 Range/Units 08:30 08:30 05:59 AST 48 H 26 (15-37) U/L CK-MB (CK-2) 3.3 (0.5-3.6) ng/mL Troponin I 0.03 (0.02-0.05) ng/mL B-Natriuretic Peptide 222 H (0-100) pg/mL Coagulation 10/30/18 10/30/18 Range/Units 08:30 08:30 PT 12.3 H (9.8-11.6) sec APTT 30.4 (23.4-31.7) sec B-Natriuretic Peptide 222 H (0-100) pg/mL CBC 10/30/18 10/31/18 Range/Units 08:30 05:59 WBC 7.6 7.1 (4.0-11.0) th/mm3 RBC 5.15 5.31 (4.50-5.90) mil/mm3 Hgb 18.7 H 19.1 H (13.0-17.0) gm/dL Hct 53.7 H 54.5 H (39.0-51.0) % Plt Count 163 149 L (150-450) th/mm3 Neut # (Auto) 5.4 4.9 (1.8-7.7) th/mm3 Lymph # (Auto) 1.2 1.1 (1.0-4.8) th/mm3 [place] # (Auto) 0.9 1.0 H (0.0-0.9) th/mm3 Eos # (Auto) 0.1 0.1 (0.0-0.4) th/mm3 Baso # (Auto) 0.0 0.0 (0.0-0.2) th/mm3 Comprehensive Metabolic Panel 10/30/18 10/31/18 Range/Units 08:30 05:59 Sodium 139 140 (136-145) meq/L Potassium 4.4 3.7 (3.5-5.1) meq/L Chloride 103 100 (98-107) meq/L Carbon Dioxide 29.8 32.6 H (21.0-32.0) meq/L BUN 25 H 29 H (7-18) mg/dL Creatinine 1.45 H 1.59 H (0.60-1.30) mg/dL Calcium 9.1 8.6 (8.5-10.1) mg/dL AST 48 H 26 (15-37) U/L ALT 67 54 (12-78) U/L Alkaline Phosphatase 67 55 (45-117) U/L Total Protein 7.8 6.8 D (6.4-8.2) g/dL Albumin 3.8 3.3 L (3.4-5.0) g/dL Intake and Output 10/30/18 10/31/18 10/31/18 22:59 06:59 14:59 Intake Total 240 / 240 720 / 720 Output Total 1050 / 1050 350 / 350 Balance -810 / -810 370 / 370 Intake: Oral 240 / 240 720 / 720 Output: Urine 1050 / 1050 350 / 350 Other: Date of Last Bowel Movement 10/30/18 # Bowel Movements 0 0 Weight 195 kg 87.4 kg Weight On Admission 86.1 kg - Imaging and Cardiology Imaging: Impressions Chest X-Ray 10/30/18 08:19 CONCLUSION: Mild congestive failure with minimal consolidation and pleural effusion left base. Chest CTA 10/30/18 08:55 CONCLUSION: 1. No evidence of pulmonary embolism. 2. Moderate cardiomegaly and bilateral pleural effusions left greater than right. 3. Mild consolidation in the posterior left lung base. 4. Mildly prominent azygos lymph node. Assessment and Plan - Assessment (1) New onset a-fib Code(s): I48.91 - Unspecified atrial fibrillation Status: Acute (2) CHF (congestive heart failure) Code(s): I50.9 - Heart failure, unspecified Status: Acute (3) Pleural effusion Code(s): J90 - Pleural effusion, not elsewhere classified Status: Acute (4) Cardiomyopathy Code(s): I42.9 - Cardiomyopathy, unspecified Status: Acute - Plan He is scheduled for a nuclear stress test today to evaluate for ischemia. He remains in atrial fibrillation with a controlled VR. Continue anticoagulation with Pradaxa. We will plan a possible DC cardioversion, after 3 weeks of anticoagulation. Continue to monitor the patient on telemetry. We will continue to monitor the patient during his hospitalization. [facility] The patient was seen and evaluated by Dr. Harris who participated in care, management and decision making. - Attending Attestation Patient seen and examined. I reviewed and agree with the evaluation and plan as presented. Nuc ST w anterior ischemia. Will schedule cath tomorrow. Hydrate overnight. (2) CHF (congestive heart failure) Qualifiers: Heart failure type: unspecified Heart failure chronicity: acute Qualified Code(s): I50.9 - Heart failure, unspecified
[2018-10-31] MEDS ORDERED: Regadenoson Inj 0.4 MG/5 ML Syringe IV.PUSH ONE (12:26)
--- NOTE | 2018-10-31 13:46 | NM ---
EXAM DATE: 10/31/2018 1:30 PM EST AGE/SEX: 68 years / Male INDICATIONS:Atrial Fibrillation. Congestive heart failure CLINICAL DATA: This is the patient's initial encounter. Patient reports that signs and symptoms have been present for 1 day and indicates a pain score of 2/10. MEDICAL/SURGICAL HISTORY: Hypertension. Inguinal hernia repair. Hip and knee surgery. COMPARISON: No prior exams available for comparison. DOSE: 8.6 mCi Tc 99m Myoview at rest 26.5 mCi [id number] at stress 0.4 mg Lexiscan STRESS SYMPTOMS: Leftside flushness. EJECTION FRACTION: 14 % TECHNIQUE: The patient underwent pharmacologic stress with infusion of prescribed dose. Continuous ECG tracing was monitored during stress. Gated SPECT imaging was performed after stress and conventi onal SPECT imaging was performed at rest. The examination was performed on a SPECT/CT scanner, both attenuation and non-corrected datasets were reviewed. FINDINGS: Distribution: The maximum perfused segment at stress is in the wall. Perfusion Study: Focal decreased perfusion in the anterior wall near the apex as well as near the b ase. Gated Study: Global severe hypokinesia. The ejection fraction is calculated at 14%. RISK CATEGORY: High (>3% Annual Mortality Rate) CONCLUSION: 1. Focal stress-induced perfusion defects in the anterior wall near the apex and near the base. 2. Severe global hypokinesia with significantly reduced EF of 14%. Electronically signed by: Nikita Ordoñez MD Board Certified Radiologist 10/31/2018 1:45 PM EST
--- NOTE | 2018-10-31 16:01 | P.PNIM ---
Subjective Interval history: Patient says he is feeling little better since admission. No chest pain currently. Physical Exam Vital signs: Vital Signs 10/30/18 20:00 10/30/18 20:30 10/30/18 22:50 Temperature 97 F L Pulse Rate 89 88 Respiratory Rate 18 Blood Pressure 127/69 Pulse Oximetry 94 L 96 10/30/18 23:24 10/30/18 23:29 10/31/18 05:05 Temperature 98.7 F 97.3 F L Pulse Rate 90 85 Respiratory Rate 18 Blood Pressure 103/76 125/84 Pulse Oximetry 95 96 10/31/18 08:00 10/31/18 08:02 10/31/18 13:18 Temperature 98.1 F Pulse Rate 88 97 H Respiratory Rate 17 Blood Pressure 113/75 Pulse Oximetry 96 92 L Intake & Output 10/30/18 10/31/18 10/31/18 18:59 06:59 18:59 Intake Total 240 / 240 720 / 720 Output Total 1550 / 1550 1250 / 1250 Balance -1310 / -1310 -530 / -530 Weight 195 kg 87.4 kg Intake: Oral 240 / 240 720 / 720 Output: Urine 1550 / 1550 1250 / 1250 Other: # Voids 1 Date of Last Bowel Movement 10/30/18 # Bowel Movements 0 0 Weight On Admission 86.1 kg Narrative: GENERAL: Patient sitting up in chair. Appears comfortable. Does appear shortness of breath with talking. SKIN: Warm and dry. HEAD: Normocephalic. EYES: No scleral icterus. No injection or drainage. NECK: Supple, trachea midline. No JVD. CARDIOVASCULAR: Regular rate and rhythm without murmurs, gallops, or rubs. RESPIRATORY: Breath sounds equal bilaterally. No accessory muscle use. GASTROINTESTINAL: Abdomen soft, non-tender, nondistended. MUSCULOSKELETAL: No cyanosis, +2 bilateral lower extremity edema. No erythema. BACK: Nontender without obvious deformity. No CVA tenderness. Results Labs CBC & Chem 7: 10/31/18 05:59 10/31/18 05:59 Imaging Imaging: Impressions Myocardial Perfusion Scan Nuc Med 10/31/18 00:00 CONCLUSION: 1. Focal stress-induced perfusion defects in the anterior wall near the apex and near the base. 2. Severe global hypokinesia with significantly reduced EF of 14%. Assessment and Plan (1) New onset a-fib: Code(s): I48.91 - Unspecified atrial fibrillation Status: Acute (2) CHF (congestive heart failure): Code(s): I50.9 - Heart failure, unspecified Status: Acute (3) Pleural effusion: Code(s): J90 - Pleural effusion, not elsewhere classified Status: Acute (4) Cardiomyopathy: Code(s): I42.9 - Cardiomyopathy, unspecified Status: Acute Plan 68-year-old male with complaints of shortness of breath //New onset A. fib with RVR //New onset CHF, elevated BNP on admission //Hypertension //Chronic pain //Anxiety/depression The patient denies having chest pain. Troponin negative, EKG no acute ischemic changes Received diltiazem IV in the emergency room and heart rate is better controlled , start diltiazem 30 mg p.o. 4 times daily, changed to long-acting Start IV Lasix 40 mg twice daily monitor urine output, monitor kidney function closely Ordered echo Check TSH Consult cardiology Restart home medications as appropriate = 10/31. Positive myocardial perfusion scan with reversible areas of ischemia. Ejection fraction 30% on echo, 14% on myocardial perfusion scan. Discussed with cardiology. I will make patient n.p.o. at midnight. Treatment otherwise as per cardiology. Appreciate assistance. DVT prophylaxis SCDs/teds/Lovenox Discussed Condition With: Patient, nurse, cardiology Discharge Planning: PT recommends home with home health. Pending likely cardiac catheterization. Progress Note: Quality VTE Deep Vein Thrombosis/Pulmonary Embolism Present on Admission: No _ (1) CHF (congestive heart failure) Qualifiers: Heart failure chronicity: acute Heart failure type: unspecified Qualified Code(s): I50.9 - Heart failure, unspecified (2) Cardiomyopathy Qualifiers: Cardiomyopathy type:
[2018-10-31] MEDS: Sod Chloride 0.9% Inj 1,000 ML IV.CONT SCH (17:31)
[2018-10-31] MEDS: ALPRAZolam 0.5 MG Tablet PO SCH (21:27)
[2018-10-31] MEDS: Mirtazapine 15 MG Tablet PO SCH (21:27)
[2018-11-01] MEDS: Sod Chloride 0.9% Inj 1,000 ML IV.CONT SCH ×2 (03:12→13:15)
[2018-11-01 05:58] LABS: Hematocrit 55.7 % (39.0-51.0); Hemoglobin 19.4 gm/dL (13.0-17.0); Mean Corpuscular HGB Conc 34.9 % (32.0-36.0); Mean Corpuscular Hemoglobin 36.2 pg (27.0-34.0); Mean Corpuscular Volume 103.6 fL (80.0-100.0); Platelet Count 149 th/mm3 (150-450); Red Blood Count 5.37 mil/mm3 (4.50-5.90); Red Cell Distribution Width 13.4 % (11.6-17.2); White Blood Count 7.5 th/mm3 (4.0-11.0)
[2018-11-01 05:59] LABS: Baso % (Auto) 0.4 % (0.0-2.0); Eos # (Auto) 0.1 th/mm3 (0.0-0.4); Eos % (Auto) 1.2 % (0.0-4.0); Lymph # (Auto) 0.9 th/mm3 (1.0-4.8); Lymph % (Auto) 12.6 % (9.0-44.0); Mean Platelet Volume 9.5 fL (7.0-11.0); Mono % (Auto) 13.1 % (0.0-8.0); Neut # (Auto) 5.5 th/mm3 (1.8-7.7); Neut % (Auto) 72.7 % (16.0-70.0)
[2018-11-01 06:24] LABS: Albumin 3.3 g/dL (3.4-5.0); Calcium 8.4 mg/dL (8.5-10.1); Carbon Dioxide 32.1 meq/L (21.0-32.0); Potassium 3.4 meq/L (3.5-5.1)
[2018-11-01] MEDS: Metoprolol Tartrate 25 MG Tablet PO SCH ×2 (08:34→21:37)
[2018-11-01] MEDS: hydroCHLOROthiazide 25 MG Tablet PO SCH (08:34)
[2018-11-01] MEDS: Senna/Docusate Sodium 8.6/50 MG Tablet PO SCH ×2 (08:35→21:37)
[2018-11-01] MEDS: Lisinopril 20 MG Tablet PO SCH (08:35)
[2018-11-01] MEDS ORDERED: Sodium Chlor 0.9% Inj 500 ML IV.SIG SCH (09:00)
[2018-11-01] MEDS ORDERED: Chlorhexidine Gluconate 2% 1 Pack (2 Cloths) TOPICAL ONE (09:30)
[2018-11-01] MEDS ORDERED: Metoprolol Tartrate 25 MG Tablet PO ONE (09:30)
--- NOTE | 2018-11-01 11:18 | P.PNIM ---
Subjective Interval history: No complaint of shortness of breath or chest pain overnight. Has been n.p.o. Ready for cardiac catheterization today. Physical Exam Vital signs: Vital Signs 10/31/18 13:18 10/31/18 16:00 10/31/18 16:02 Temperature 98.0 F Pulse Rate 87 97 H Respiratory Rate 18 Blood Pressure 108/85 Pulse Oximetry 92 L 94 L 10/31/18 20:00 11/01/18 00:00 11/01/18 00:05 Temperature 97.7 F Pulse Rate 95 H 94 H 89 Respiratory Rate 17 Blood Pressure 129/82 Pulse Oximetry 96 96 11/01/18 03:30 11/01/18 04:00 11/01/18 07:36 Temperature 97.6 F 97.6 F Pulse Rate 114 H 94 H 96 H Respiratory Rate 17 16 Blood Pressure 120/94 H 117/72 Pulse Oximetry 98 98 11/01/18 08:00 Temperature Pulse Rate 85 Respiratory Rate Blood Pressure Pulse Oximetry Intake & Output 10/31/18 11/01/18 11/01/18 18:59 06:59 18:59 Intake Total 240 / 240 1000 / 1000 Output Total 800 / 800 Balance -560 / -560 1000 / 1000 Intake: IV 1000 / 1000 NS Inj 1,000 ML @ 100 mls/hr IV 1000 / 1000 .CONT .Q10H TAYLOR Rx#:[id number] Oral 240 / 240 Output: Urine 800 / 800 Other: Date of Last Bowel Movement 10/30/18 10/30/18 # Bowel Movements 0 Narrative: GENERAL: This is a well-nourished, obese well-developed patient, in no apparent distress. CARDIOVASCULAR: Irregular rate and rhythm RESPIRATORY: Clear to auscultation. Breath sounds equal bilaterally. No wheezes , rales, or rhonchi. GASTROINTESTINAL: Abdomen soft, non-tender, nondistended. Normal active bowel sounds MUSCULOSKELETAL: Extremities without clubbing, cyanosis, 1+ NEURO: Alert & Oriented x4 to person, place, time, situation. Moves all ext x4 Results Labs CBC & Chem 7: 11/01/18 05:17 11/01/18 05:17 Imaging Imaging: Impressions Myocardial Perfusion Scan Nuc Med 10/31/18 00:00 CONCLUSION: 1. Focal stress-induced perfusion defects in the anterior wall near the apex and near the base. 2. Severe global hypokinesia with significantly reduced EF of 14%. Assessment and Plan (1) New onset a-fib: Code(s): I48.91 - Unspecified atrial fibrillation Status: Acute (2) CHF (congestive heart failure): Code(s): I50.9 - Heart failure, unspecified Status: Acute (3) Pleural effusion: Code(s): J90 - Pleural effusion, not elsewhere classified Status: Acute (4) Cardiomyopathy: Code(s): I42.9 - Cardiomyopathy, unspecified Status: Acute (5) CKD (chronic kidney disease) stage 3, GFR 30-59 ml/min: Code(s): N18.3 - Chronic kidney disease, stage 3 (moderate) Status: Chronic (6) Obesity (BMI 30.0-34.9): Code(s): E66.9 - Obesity, unspecified Status: Chronic (7) Acute systolic (congestive) heart failure: Code(s): I50.21 - Acute systolic (congestive) heart failure Status: Acute Plan 68-year-old white male presents with complaint of shortness of breath New onset of atrial fibrillation with rapid ventricular ratenow rate controlled On metoprolol 25 twice daily 2D echo shows EF of 30-35% with moderate mitral valve regurgitation, mild to moderate atrial valve regurgitation, mild tricuspid valve regurgitation Pradaxa on hold for pending catheterization today New-onset of acute systolic congestive heart failure with elevated BNP on [id number] echo as above Continue diuretics Lasix, strict I&O, lisinopril may need to transition to Entresto Nuclear stress test with reversible areas of ischemia with a EF of 30% For cardiac catheterization with cardiology today Hypokalemiareplete Suspect underlying chronic kidney disease stage IIImonitor on diuretics Obesityweight loss counseling DVT prophylaxis SCD Pradaxa on hold for pending cardiac catheterization Progress Note: Quality VTE Deep Vein Thrombosis/Pulmonary Embolism Present on Admission: No _ (1) CHF (congestive heart failure) Qualifiers: Heart failure chronicity: acute Heart failure type: unspecified Qualified Code(s): I50.9 - Heart failure, unspecified (2) Cardiomyopathy Qualifiers: Cardiomyopathy type:
[2018-11-01] MEDS ORDERED: Iohexol 350 MG/ML 50 ML Vial (for Cath Lab) IVCONTRAST ONE (14:36)
[2018-11-01] MEDS ORDERED: Heparin/NS PF Inj 1,000 ML ONE (15:10)
[2018-11-01] MEDS ORDERED: fentaNYL Citrate Inj 100 MCG/2 ML Ampul ONE ×2 (15:12→15:43)
[2018-11-01] MEDS ORDERED: Heparin 10,000 UNITS/10 ML Vial (for IV use) ONE (15:12)
--- NOTE | 2018-11-01 17:08 | CATHPROC ---
[employer] HIS Report Study Information Study Number Admission Scheduled Start Study Start [id number] Oct 30 2018 11:15AM 11/01/2018 Nov 01 2018 3:05PM [place] [facility] Cardiac Catheterization Admit Source Facility Department Emergency department [facility] - [facility] Physician and Clinical Staff Initial Anabela Lagunas Scalp Treatment Specialist Chiquis Burdick BSN Other cathlab, cathlab Recorder Eileen, Tio Caro RCIS(BS) Procedures Performed Procedure Location (Site) Vessel Name Angiogram LV LV Ventricle Coronary Angiograms LCA Left Coronary Coronary Angiograms RCA Right Coronary Equipment Time Almond Paste Mixer Description Size Mfg Part Number Used/Scraped [id number] 16:05 HERNÁNDEZ TIRADO SWAN ALANA CATHETER FR 7 Used *[id number] TRANSDUCER, TRUWAVE [id number] 15:08 HERNÁNDEZ TIRADO * Used W/STOCKCOCK *[id number] 16:37 [employer] MEDICAL VASCADE, FR5 CLOSURE SYSTEM FR 5 Used *[id number] 16:37 [employer] MEDICAL VASCADE, FR6 CLOSURE SYSTEM FR 6\\7 Used *[id number] [id number] *[id number] [id number] *[id number] [id number] *[id number] 15:08 [employer] BLANKET,WARM AIR CCL * Used *[id number] 15:08 [employer] PACK, CCL CUSTOM * Used *[id number] 15:08 [employer]PASS PACER PEN, SKIN DUAL W/ RULER * Used *[id number] 15:08 [employer] WIRE, 3MMJ .035 180CM 180CM Used *[id number] PROBE COVER, STERILE [id number] 15:08 [employer] * Used ULTRASOUND W/ GEL *[id number] PROBE COVER, STERILE [id number] 16:05 [employer] * Used ULTRASOUND W/ GEL *[id number] 15:08 NAMIC MANIFOLD, 4 PORT * Used *[id number] 15:08 NAMIC TUBING, HIGH PRESSURE 48" 48" Used *[id number] 15:08 [employer] OMNIPAQUE, 350 MG, 150ML 150ML [id number] Used [id number] 15:08 TERUMO MEDICAL SHEATH, FR5 TERUMO (10CM) FR 5 Used *[id number] 16:02 [employer]UMO MEDICAL SHEATH, FR7 TERUMO (10CM) FR 7 Used *[id number] History: Current Medications Medication Dosage/Unit Route Frequency Last Date/Time Taken Beta Daniel PRADAXA LASIX History: Allergies Allergy Reaction lithium Anxiety atenolol Anxiety History: Risk Factors Family History of Hypertension Dyslipidemia Previous GA Previous Heart Failure Premature CAD Yes No No Yes Yes Prior Valve Prior PCI Prior CABG Surgery No No No Cerebrovascular Peripheral Artery Chronic Lung On Dialysis Diabetes Disease Disease Disease No No Yes Yes No History: Symptoms/Diagnosis Selection Items SOB History: Stress Tests Stress or Imaging Studies Performed Yes Standard Exercise Stress Test No Stress Echo No Stress Test SPECT Stress Test SPECT Result Stress Test SPECT Ischemia Risk/Extent Yes Positive High Stress Test CMR No Cardiac CTA Coronary Calcium Score No No History: Other Disease Selection Items CHF History: Other Current Smoker No Labs Hgb (g/dl) Hct (%) WBC (l/cumm) Platelets (thousands) 11.60-17.00 35.00-51.00 4.00-11.00 150.00-450.00 19.4 55.7 7.5 149 Glucose (mg/dl) BUN (mg/dl) Creatinine (mg/dl) BUN:Creatinine (1:x) 74.00-106.00 7.00-18.00 0.50-1.30 10.00-20.00 97 27 1.3 20.8 Na (meq/l) K (meq/l) 136.00-145.00 3.50-5.10 138 3.4 INR (PTT:PT) 0.90-1.10 1.2 Troponin I (ng/ml) CPK (u/l) CPK-MB (ng/ML) 0.02-0.05 26.00-308.00 0.50-3.60 0.03 133 3.3 Medication Medication Total Dose (Bolus/Oral) Medication Total Dosage/Unit 1% XYLOCAINE 16 mL FENTANYL 125 mcg VERSED 6 mg Medications (Bolus/Oral) Medication Time Given Dosage/Unit Administered By Reason VERSED 11/01/2018 3:32:02 PM 2 mg Chiquis Burdick 2 mg VERSED given in lab by Chiquis Burdick BSN in Left Antecubital via Peripheral IV. Ordered b Anabela Gonzalez. FENTANYL 11/01/2018 3:33:11 PM 50 mcg Matuszczak, Chiquis 50 mcg FENTANYL given in lab by Chiquis Burdick , BSN in Left Antecubital via Peripheral IV. Order ed by Anabela Harris. VERSED 11/01/2018 3:39:21 PM 1 mg Matuszczak, Chiquis 1 mg VERSED given in lab by Chiquis Burdick , BSN in Left Antecubital via Peripheral IV. Ordered b y Anabela Harris. FENTANYL 11/01/2018 3:40:29 PM 25 mcg Matuszczak, Chiquis 25 mcg FENTANYL given in lab by Chiquis Burdick , BSN in Left Antecubital via Peripheral IV. Order ed by Anabela Harris. VERSED 11/01/2018 3:42:55 PM 1 mg Matuszczak, Chiquis 1 mg VERSED given in lab by Chiquis Burdick , BSN in Left Antecubital via Peripheral IV. Ordered b y Anabela Harris. FENTANYL 11/01/2018 3:43:00 PM 25 mcg Matuszczak, Chiquis 25 mcg FENTANYL given in lab by Chiquis Burdick , BSN in Left Antecubital via Peripheral IV. Order ed by Anabela Harris. 1% XYLOCAINE 11/01/2018 3:43:14 PM 8 mL Anabela Harris 8 mL 1% XYLOCAINE given in lab by Anabela Harris in Right Groin via Subcutaneous. Ordered by Anabela Harris. VERSED 11/01/2018 3:46:58 PM 2 mg Matuszczak, Chiquis 2 mg VERSED given in lab by Chiquis Burdick , BSN in Left Antecubital via Peripheral IV. Ordered b y Anabela Harris. FENTANYL 11/01/2018 3:47:08 PM 25 mcg Matuszczak, Chiquis 25 mcg FENTANYL given in lab by Chiquis Burdick , BSN in Left Antecubital via Peripheral IV. Order ed by Anabela Harris. 1% XYLOCAINE 11/01/2018 4:08:05 PM 8 mL Anabela Harris 8 mL 1% XYLOCAINE given in lab by Anabela Harris in Right Groin via Subcutaneous. Ordered by Anabela Harris. Medication (Drip) Medication Time Given Dosage/Unit Concentration/Unit Diluent (ml) Solution IV Solutions 11/01/2018 3:19:45 PM 50 mL (IV) NaCl .9 Patient arrived on IV Solutions given by Anabela Harris via Peripheral IV. Pump/Drip Flow using NaCl .9. Ordered by Anabela Harris. Initial Case Assessment Cardiovascular HR Rhythm NIBP Chest Pain 105 afib 135/105 0 Edema Present Skin color Skin Mild Normal Warm Dry Circulatory - Right Pulses Dorsalis Pedis Femoral 2 1 Scale (0,1,2,3,4,d) Circulatory - Left Pulses Dorsalis Pedis Femoral d 1 Scale (0,1,2,3,4,d) Neurological State Oriented to time-place- Alert Moves all extremities person Respiration - General Respiration Rate SpO2 (%) (B/min) 21 95 Initial Case Assessment Cardiovascular HR Rhythm NIBP Chest Pain 100 afib 121/97 0 Edema Present Skin color Skin Mild Normal Warm Dry Circulatory - Right Pulses Dorsalis Pedis Femoral 2 1 Scale (0,1,2,3,4,d) Circulatory - Left Pulses Dorsalis Pedis Femoral d 1 Scale (0,1,2,3,4,d) Neurological State Oriented to time-place- Alert Moves all extremities person Respiration - General Respiration Rate SpO2 (%) (B/min) 26 96 Chronological Log Time Study Chronological Log 15:19:32 Patient arrived via Bed. 15:19:33 Patient Name, D.O.B, / Armband Verified By R.N. 15:19:33 Consent signed by the physician and the patient and verified by the [facility] staff. 15:19:34 Pre-op and post- op instructions given; patient acknowledges understanding of instructions. 15:19:36 Presedation assessment performed by [facility] RN. 15:19:37 Immediate Presedation assesment performed by physician. 15:19:39 Patient has been NPO for More than 6Hrs. 15:19:39 Skin Breakdown-scab on nose 15:19:40 Patient Warmer Placed on the Table. 15:19:42 Renetta Prominences Protected 15:19:44 A # 20 IV was noted in the Antecubital (left). Grade = 0 Patient arrived on IV Solutions given by Anabela Harris via Peripheral IV. Pump/Drip Flow usin g NaCl .9. Ordered by 15:19:45 Anabela Harris. 15:19:45 History and physical on the chart or being dictated. 15:29:03 Reference ECG taken 15:29:53 Verbal Stimulation=2 Physical Stimulation=2 Airway=2 Respiration=2 TOTAL=8. (0=absent, 1=li mited, 2=present) Assessment: Initial Case, MR=047 BPM, Rhythm=afib, FWNK=202/105 mmhg, Chest Pain=0, Edema=Mild, Color=Normal, Skin = Warm, Dry Right Pulses: Nick Ped=2, Femoral=1 15:30:06 Left Pulses: Nick Ped=d, Femoral=1 Neurological: State=Alert, Ox3, BLANK Respiration: Resp=21 B/min, SpO2=95 % Vitals capture started with the following parameters, Patient=Adult, Interval=5 min, Initial Pr wqerut=880 mmHg, 15:30:24 Deflation Rate=5 mmHg, Cuff placed on Left Arm 15:31:00 WF=908 bpm, NCCI=051/105 mmhg, SpO2=99.0 %, Resp=36 B/min, Pain=0, Jamar=10, Maya=2 2 mg VERSED given in lab by Chiquis Burdick , AGUILARN in Left Antecubital via Peripheral IV. Ord ered by Kimberly, 15:32:02 Anabela. 50 mcg FENTANYL given in lab by Chiquis Burdick , BSN in Left Antecubital via Peripheral IV. Ordered by Kimberly, 15:33:11 Anabela. 15:33:56 Pressure channel 1 zeroed. 15:34:02 paged 15:36:01 HR=97 bpm, YMJG=870/91 mmhg, SpO2=98.0 %, Resp=19 B/min, Pain=0, Jamar=10, Maya=2 1 mg VERSED given in lab by Chiquis Burdick , BSN in Left Antecubital via Peripheral IV. Ord ered by Kimberly, 15:39:21 Anabela. 25 mcg FENTANYL given in lab by Chiquis Burdick , BSN in Left Antecubital via Peripheral IV. Ordered by Kimberly, 15:40:29 Anabela. 15:41:02 GQ=554 bpm, MUUJ=233/88 mmhg, SpO2=98.0 %, Resp=23 B/min, Pain=0, Jamar=10, Maya=2 15:41:57 MD arrived. Time Out. Correct patient, correct procedure, correct physician, labs, allergies, and equipment verified with dental laboratory assistant 15:42:00 team present. Fire risk assesment completed (see hard stop sheet for coding). Time Out Conc urred by MD and individual staff in procedure. 1 mg VERSED given in lab by Chiquis Burdick BSN in Left Antecubital via Peripheral IV. Ord ered by Kimberly, 15:42:55 Anabela. 25 mcg FENTANYL given in lab by Chiquis Burdick BSN in Left Antecubital via Peripheral IV. Ordered by Kimberly, 15:43:00 Anabela. 15:43:13 Case Start 15:43:14 8 mL 1% XYLOCAINE given in lab by Anabela Harris in Right Groin via Subcutaneous. Ordered by Anabela Harris. 15:46:06 HR=96 bpm, WDAW=513/85 mmhg, SpO2=97.0 %, Resp=20 B/min, Pain=0, Jamar=10, Maya=2 15:46:39 Access site was Right Femoral Artery. 15:46:44 A SHEATH, FR5 TERUMO (10CM) FR 5 was advanced into the Fem Art (right) using the Percutaneo us technique. 2 mg VERSED given in lab by Chiquis Burdick BSN in Left Antecubital via Peripheral IV. Ord ered by Kimberly, 15:46:58 Anabela. 25 mcg FENTANYL given in lab by Chiquis Burdick BSN in Left Antecubital via Peripheral IV. Ordered by Kimberly, 15:47:08 Anabela. A PIGTAIL ANG. INFINITI CATHETER FR 5 was advanced over a wire. OMNIPAQUE, 350 MG, 150ML 150ML was used 15:50:30 for injections. 15:51:35 PD=442 bpm, KSMB=408/80 mmhg, SpO2=96.0 %, Resp=16 B/min, Pain=0, Jamar=10, Maya=2 15:52:05 Pressure channel 1 zeroed. Recorded Pressure: LV, OM=955, Condition=Condition 1 15:52:19 (Left Ventricle) LV 103/20/20 15:53:23 The LV was injected at 10 cc/sec for a total of 10. OMNIPAQUE, 350 MG, 150ML 150ML used. Recorded Pressure: LV, Ao, HR=88, Condition=Condition 1 15:54:52 (Left Ventricle) LV 96/22/23, (Aorta) Ao 109/77/90 After removing the current catheter a JL 4.0 INFINITI CATHETER FR 5 was advanced over a WIRE, 3 MMJ .035 180CM 15:55:26 180CM. 15:56:04 HR=88 bpm, ZEQW=387/83 mmhg, SpO2=96.0 %, Resp=11 B/min, Pain=0, Jamar=10, Maya=2 15:56:28 The LCA was injected and visualized at various angles. OMNIPAQUE, 350 MG, 150ML 150ML used . Recorded Pressure: Ao, BB=486, Condition=Condition 1 15:56:46 (Aorta) Ao 126/83/102 After removing the current catheter a AR MOD INFINITI CATHETER FR 5 was advanced over a WIRE, 3 MMJ .035 180CM 15:58:15 180CM. 15:59:47 The RCA was injected and visualized at various angles. OMNIPAQUE, 350 MG, 150ML 150ML used . 16:00:35 Catheter was removed 16:01:05 GN=054 bpm, DBMH=416/74 mmhg, SpO2=96.0 %, Pain=0, Jamar=10, Maya=2 16:06:00 MH=536 bpm, KKIM=081/82 mmhg, SpO2=95.0 %, Pain=0, Jamar=10, Maya=2 16:08:05 8 mL 1% XYLOCAINE given in lab by Anabela Harris in Right Groin via Subcutaneous. Ordered by Anabela Harris. 16:11:03 HR=97 bpm, KLPY=340/86 mmhg, SpO2=95.0 %, Resp=24 B/min, Pain=0, Jamar=10, Maya=2 16:16:06 HR=94 bpm, OGNQ=937/80 mmhg, SpO2=91.0 %, Resp=22 B/min, Pain=0, Jamar=10, Maya=2 16:16:18 Access site was Right Femoral Vein. 16:16:35 A SHEATH, FR7 TERUMO (10CM) FR 7 was advanced into the Fem Vein (right) using the Percutane ous technique. A SWAN ALANA CATHETER FR 7 was advanced over a wire. OMNIPAQUE, 350 MG, 150ML 150ML was used for 16:17:44 injections. 16:21:05 OY=345 bpm, SBBP=897/88 mmhg, SpO2=96.0 %, Resp=19 B/min, Pain=0, Jamar=10, Maya=2 Recorded Pressure: PCW, IG=733, Condition=Condition 1 16:23:18 (Pulmonary Capillary Wedge) PCW 30/29/25 Recorded Pressure: MPA, MS=047, Condition=Condition 1 16:23:43 (Main Pulmonary Artery) MPA 46/28/36 16:24:25 Saturation: Site=Ao (Aorta) , O2=97.5 %, Hgb=19.4 gm/dl, Condition=Condition 1. Used in wong culation. Saturation: Site=MPA (Main Pulmonary Artery) , O2=66.4 %, Hgb=19.4 gm/dl, Condition=Condition 1 . Used in 16:25:51 calculation. 16:26:04 ND=802 bpm, YLSG=375/92 mmhg, SpO2=95.0 %, Resp=22 B/min, Pain=0, Jamar=10, Maya=2 Thermo CO: CO=2.3 l/m, IK=031 bpm, Condition=Condition 1. Used in calculation. 16:27:39 Equipment: Description and Size=SWAN ALANA CATHETER FR 7, Type=[place]ath Probe, CC=0.579 Injectant: Temp=19.0 - 22.0 Celsius, Volume=10.0 ml Thermo CO: CO=2.0 l/m, WL=117 bpm, Condition=Condition 1. Used in calculation. 16:28:28 Equipment: Description and Size=SWAN ALANA CATHETER FR 7, Type=Bath Probe, CC=0.579 Injectant: Temp=19.0 - 22.0 Celsius, Volume=10.0 ml Thermo CO: CO=2.1 l/m, PX=417 bpm, Condition=Condition 1. Used in calculation. 16:29:17 Equipment: Description and Size=SWAN ALANA CATHETER FR 7, Type=Bath Probe, CC=0.579 Injectant: Temp=19.0 - 22.0 Celsius, Volume=10.0 ml 16:31:05 DD=736 bpm, NQMT=305/96 mmhg, SpO2=95.0 %, Resp=21 B/min, Pain=0, Jamar=10, Maya=2 Recorded Pressure: RV, UD=085, Condition=Condition 1 16:32:17 (Right Ventricle) RV 47 Recorded Pressure: RA, TN=866, Condition=Condition 1 16:32:37 (Right Atrium) RA 16:33:02 [place] Catheter Removed 16:34:09 An injection in the Fem Art (right) was made through the SHEATH, FR5 TERUMO (10CM) FR 5. 16:35:25 Case End (Physician broke scrub) 16:35:47 Catheter(s) removed without difficulty 16:36:04 AV=517 bpm, IUZQ=811/97 mmhg, SpO2=95.0 %, Resp=25 B/min, Pain=0, Jamar=10, Maya=2 16:37:18 VASCADE, FR6 CLOSURE SYSTEM FR 6\\7 placement in the Fem Art (right) 16:37:50 VASCADE, FR5 CLOSURE SYSTEM FR 5 placement in the Fem Vein (right) Assessment: Initial Case, AT=312 BPM, Rhythm=afib, ZOIX=763/97 mmhg, Chest Pain=0, Edema=Mild, Color=Normal, Skin = Warm, Dry Right Pulses: Nick Ped=2, Femoral=1 16:38:28 Left Pulses: Nick Ped=d, Femoral=1 Neurological: State=Alert, Ox3, BLANK Respiration: Resp=26 B/min, SpO2=96 % 16:40:54 No case complications noted. 16:40:55 Cine recording checked. 16:40:56 Bedside Report will be given. 16:41:01 A Left and Right Heart Cath was performed. 16:41:05 FN=824 bpm, EQXC=588/95 mmhg, SpO2=97.0 %, Resp=19 B/min, Pain=0, Jamar=10, Maya=2 16:46:04 YM=917 bpm, DWGD=055/96 mmhg, SpO2=96.0 %, Resp=18 B/min, Pain=0, Jamar=10, Maya=2 16:51:32 OA=410 bpm, SRUX=227/91 mmhg, SpO2=95.0 %, Resp=22 B/min 16:56:12 Vitals capture stopped. 17:00:52 Patient moved to stretcher End Study - Contrast Media Used In Study Contrast Total Opened (mL) Total Used (mL) Total Wasted (mL) Omnipaque 45 45 0 End Study - Maximum Contrast Load Max Contrast Load (mL) 336.2 End Study - Radiation Exposure Fluoro Time Fluoro Dose (mGy) Cine Dose (uGym2) (minutes) 5.0 0208 [id number] End Study - Patient Disposition Complications Transferred To Telemetry Bed
--- NOTE | 2018-11-01 17:56 | MR ---
cc: Anabela Harris MD DATE: 11/01/2018 INDICATION: Congestive heart failure Class IV, high risk adenosine nuclear myocardial perfusion study, cardiomyopathy with severe left ventricular systolic dysfunction. PROCEDURE PERFORMED: 1. Retrograde left and right heart catheterization with left ventriculography, selective coronary angiography, and thermodilution cardiac output determination. 2. Moderate sedation. ACCESS SITE: Right femoral artery and right femoral vein. EQUIPMENT USED: A 5-Tajik pigtail catheter, a 5-Tajik JL4 and AR modified coronary catheters, Glen Ullin-Juanito catheter. MEDICATIONS: Versed IV, fentanyl IV. CONTRAST: Omnipaque: 45 mL. COMPLICATIONS: None. ESTIMATED BLOOD LOSS: Less than 10 mL. METHOD OF HEMOSTASIS: VASCADE closure. RESULTS: A. HEMODYNAMICS: Heart rate 85 beats per minute. Left ventricular end-diastolic pressure 22 mmHg, left ventricle 110/22. Aorta 110/83/102. Mean capillary wedge pressure 25 mmHg. Pulmonary artery 45/28/36, right ventricle 45/11, mean right atrial pressure 13 mmHg. Cardiac output 2.1 liters per minute by thermodilution and 3.0 liters per minute by Tatyana. B. LEFT VENTRICULOGRAPHY: LV ejction fraction 20%, wall motion: severe global hypokinesis, no mitral regurgitation. C. CORONARY ANGIOGRAPHY: Left main coronary artery is patent. Left anterior descending artery is patent. D1 patent. D2 patent. Left circumflex artery patent. OM1 patent. OM2 patent. Left PDA patent. Right coronary artery is a nondominant vessel, which is patent. DIAGNOSES: 1. Widely patent coronary arteries. 2. Severe left ventricular systolic dysfunction. 3. Mild pulmonary hypertension. DISPOSITION: Mr. Templeton was found to have evidence of severe left ventricular dysfunction and no evidence of significant obstructive coronary artery disease. This study is consistent with severe nonischemic cardiomyopathy. Recommend to continue therapy for congestive heart failure with diuresis and beta anni; will switch lisinopril to Entresto. We will resume anticoagulation with Pradaxa for his atrial fibrillation. I will see him back for followup in our office after discharge. Anabela Harris MD OQ/johnie , 04:57 PM , 05:05 PM JACE
[2018-11-01] MEDS: ALPRAZolam 0.5 MG Tablet PO SCH (21:36)
[2018-11-01] MEDS: Mirtazapine 15 MG Tablet PO SCH (21:37)
[2018-11-02] MEDS: Sod Chloride 0.9% Inj 1,000 ML IV.CONT SCH (01:10)
[2018-11-02 08:09] LABS: Calcium 8.5 mg/dL (8.5-10.1); Carbon Dioxide 32.7 meq/L (21.0-32.0); Potassium 3.1 meq/L (3.5-5.1)
[2018-11-02] MEDS: hydroCHLOROthiazide 25 MG Tablet PO SCH (08:54)
[2018-11-02] MEDS: Senna/Docusate Sodium 8.6/50 MG Tablet PO SCH ×2 (08:54→09:06)
[2018-11-02] MEDS: Metoprolol Tartrate 25 MG Tablet PO SCH (09:03)
--- NOTE | 2018-11-02 13:23 | P.DS ---
DS: Providers Date of admission: 10/30/18 11:15 Primary care physician: [facility] Consults: 10/30/18 11:17 Consult to Cardiology Routine Consulting Provider: Anabela Harris Does the patient have a Senior [employer] Etl Developer who follows them?: No Preferred [employer] Top Assembler:: Insurance Examiner Physician Reason for Consultation: new onset Afib with RVR and new onset CHF Notified:: Office Spoke with:: Renuka Date Notified:: 10/30/18 Time Notified:: 12:03 Ordering Provider: GABRIELLE Brief History from admission: Patient is a 68 year old male with PMH of chronic pain, HTN, anxiety of who comes in complaining of shortness of breath. [facility] to come to the [facility] due to concerns for CHF and afib. He says for the past week he has been feeling short of breath, worse with exertion. He says it started suddenly while he was at the gym. He denies any chest pain. He has been coughing. He denies fever or chills. He feels short of breath with laying flat as well. He reports swelling of both legs worsening. Severity is moderate. Says he is active and goes to the gym 5 times a week. DS: Diagnosis Discharge Diagnosis (1) New onset a-fib: Status: Acute (2) CHF (congestive heart failure): Status: Acute (3) Pleural effusion: Status: Acute (4) Cardiomyopathy: Status: Acute (5) CKD (chronic kidney disease) stage 3, GFR 30-59 ml/min: Status: Chronic (6) Obesity (BMI 30.0-34.9): Status: Chronic (7) Acute systolic (congestive) heart failure: Status: Acute DS: Summary Patient was admitted, started on diuresis. Cardiology evaluated the patient, performed heart cath which showed largely patent vessels. Was deemed to have exertional dyspnea as a result of acute on chronic systolic heart failure. His exertional dyspnea and lower extremity edema had resolved with diuresis. Patient was switched from lisinopril to Entresto. Patient was advised to closely follow-up with a provider to recheck his electrolytes and his renal function probably within a few days of discharge. Patient has met maximal benefit from hospitalization is clinically stable for discharge. Time Spent with Patient Total time spent providing and/or coordinating discharge services: Less than 30 minutes Quality: VTE Deep Vein Thrombosis/Pulmonary Embolism Present on Admission: No Results Labs on day of discharge: Labs from last 24 hours 11/02/18 06:23 Sodium 138 Potassium 3.1 L Chloride 98 Carbon Dioxide 32.7 H Anion Gap 7 BUN 26 H Creatinine 1.30 Estimated GFR 55 L Random Glucose 86 Calcium 8.5 Impressions ITS Impressions Chest X-Ray 10/30/18 08:19 CONCLUSION: Mild congestive failure with minimal consolidation and pleural effusion left base. Chest CTA 10/30/18 08:55 CONCLUSION: 1. No evidence of pulmonary embolism. 2. Moderate cardiomegaly and bilateral pleural effusions left greater than right. 3. Mild consolidation in the posterior left lung base. 4. Mildly prominent azygos lymph node. Myocardial Perfusion Scan Nuc Med 10/31/18 00:00 CONCLUSION: 1. Focal stress-induced perfusion defects in the anterior wall near the apex and near the base. 2. Severe global hypokinesia with significantly reduced EF of 14%. Discharge Plan Discharge Disposition Patient Disposition: Discharge Home Discharge Condition Condition: Stable Discharge Order Discharge Orders: Discharge Order (Routine); Ordered 11/02/18 Ordered By: Glen [facility]ya Physicians Team Primary Care Provider: [facility] Attending Provider: Glen Pandya Other Providers: Anabela Harris Rxs /Orders / Referrals /Forms Prescriptions: New metoprolol tartrate 25 mg Tablet 25 mg PO BID Qty: 60 RF: 0 dabigatran etexilate [Pradaxa] 150 mg Capsule 150 mg PO BID Qty: 60 RF: 0 sacubitril-valsartan [Entresto] 49-51 mg Tablet 1 tab PO BID Qty: 60 RF: 0 furosemide 20 mg tablet 20 mg PO DAILY Qty: 30 RF: 0 potassium chloride 10 mEq capsule, extended release 20 meq PO DAILY Qty: 60 RF: 0 Continue trazodone 50 mg Tablet 1 - 2 tab PO HS PRN (Reason: Sleep) RF: 0 amlodipine 5 mg Tablet 5 mg PO DAILY RF: 0 alprazolam 0.5 mg Tablet 1.5 mg PO HS RF: 0 buspirone 10 mg Tablet 20 mg PO BID RF: 0 mirtazapine 45 mg Tablet 45 mg PO HS RF: 0 morphine 15 mg Tablet 15 mg PO BID PRN (Reason: Pain) RF: 0 oxycodone 5 mg Tablet 5 mg PO DAILY RF: 0 Discontinued lisinopril-hydrochlorothiazide 20-12.5 mg Tablet 2 tab PO DAILY RF: 0 Referrals: [facility] [Primary Care Provider] - See Instructions Anabela Harris MD [Physician] - See Instructions (3 weeks) Discharge Instructions Patient Printed Instructions: Metoprolol (By mouth), Furosemide (By mouth), Potassium Chloride (By mouth), Dabigatran (By mouth), Sacubitril/Valsartan (By mouth), Heart Failure (DC), Chronic Kidney Disease (DC), Pleural Effusion (DC), Obesity (DC), Heart Catheterization (DC) Additional Instructions: Have a provider recheck your kidney function and potassium levels within 3-5 daysa after discharge. Monitor your weight daily; if there is a 3 lb weight gain within 24 hrs, take one extra pill of furosemide and contact either your PCP or your body rolling machine tender immediately. Status ED Status: Left Department Discharge Information Discharge Date/Time: 11/02/18 14:37
== END 2018-11-02 14:37 | disposition home or self-care (01) | DRG 286 ==
LOC: NEPE 07:38 → NEDA 11:15 → N04 14:05 → HCIS 11-01 15:35
PROVIDERS: ADMIT Hospitalist; ATTEND Hospitalist
DX: E66.9 Obesity, unspecified; M19.90 Unspecified osteoarthritis, unspecified site; N40.0 Benign prostatic hyperplasia without lower urinary tract symptoms; Z82.49 Family history of ischemic heart disease and other diseases of the circulatory system; I50.23 Acute on chronic systolic (congestive) heart failure; I42.9 Cardiomyopathy, unspecified; N18.3 Chronic kidney disease, stage 3 (moderate); Z96.659 Presence of unspecified artificial knee joint; H90.5 Unspecified sensorineural hearing loss; H93.19 Tinnitus, unspecified ear; I27.20 Pulmonary hypertension, unspecified; F17.200 Nicotine dependence, unspecified, uncomplicated; I13.0 Hypertensive heart and chronic kidney disease with heart failure and stage 1 through stage 4 chronic kidney disease, or unspecified chronic kidney disease; Z79.899 Other long term (current) drug therapy; Z96.649 Presence of unspecified artificial hip joint; F41.1 Generalized anxiety disorder; I48.91 Unspecified atrial fibrillation; G89.29 Other chronic pain; E29.1 Testicular hypofunction; G47.33 Obstructive sleep apnea (adult) (pediatric); F41.0 Panic disorder [episodic paroxysmal anxiety]; F32.4 Major depressive disorder, single episode, in partial remission; Z68.32 Body mass index [BMI] 32.0-32.9, adult; F14.21 Cocaine dependence, in remission; F10.11 Alcohol abuse, in remission; E87.6 Hypokalemia
CPT/HCPCS: 71010; 71045; 71275; 78452; 80048; 80053; 80069; 82550; 82552; 82810; 83520; 83735; 83880; 84443; 84484; 85025; 85610; 85730; 90774; 90775; 90784; 93005; 93017; 93306; 93460; 94618; 94620; 96374; 96375; 97110; 97116; 97162; 99152; 99153; 99285; A4646; A9502; C1760; C1769; C1893; C8952; G0269; J1644; J1650; J1940; J2250; J2785; J3010; J3475; J7030; J7040; Q9950; Q9965; Q9967